=== PATIENT | female | born 1945 | race Caucasian/White ===

== ENCOUNTER 2024-11-04 11:17 | Inpatient (IN) | payer MEDICARE ==
[~2024-11-04] VITALS: Ht 152.4 cm; Wt 56.2 kg
[2024-11-04] MEDS ORDERED: AMIODARONE HCL200 MG PO (13:15)
[2024-11-04] MEDS ORDERED: ELIQUIS2.5 MG PO (13:15)
[2024-11-04] MEDS ORDERED: ASPIRIN81 MG PO (13:16)
[2024-11-04] MEDS ORDERED: CARBIDOPA-LEVO1 EAC1 PO (13:17)
[2024-11-04] MEDS ORDERED: DULCOLAX STOOL100 M1 PO (13:17)
[2024-11-04] MEDS ORDERED: FUROSEMIDE80 MG PO (13:18)
[2024-11-04] MEDS ORDERED: HYDRALAZINE HCL25 MG PO (13:18)
[2024-11-04] MEDS ORDERED: HYDROXYZINE HCL25 MG PO (13:19)
[2024-11-04] MEDS ORDERED: HUMALOG100 UNIT/1 SUB-Q (13:20)
[2024-11-04] MEDS ORDERED: LANTUS100 UNITS/ SUB-Q (13:20)
[2024-11-04] MEDS ORDERED: LEVOTHYROXINE88 MC1 PO (13:21)
[2024-11-04] MEDS ORDERED: ISOSORBIDE MONO30 MG PO (13:21)
[2024-11-04] MEDS ORDERED: CLARITIN10 M2 PO (13:22)
[2024-11-04] MEDS ORDERED: METHOCARBAMOL500 MG PO (13:23)
[2024-11-04] MEDS ORDERED: PANTOPRAZOLE SO40 M2 PO (13:24)
[2024-11-04] MEDS ORDERED: METOPROLOL TART25 MG PO (13:24)
[2024-11-04] MEDS ORDERED: HYDROmorphone HCL 1 MG/ML SYR IV PRN (13:45)
[2024-11-04] MEDS ORDERED: SODIUM CHLORIDE 0.9% 1,000 ML IV PRN (13:45)
[2024-11-04 13:51] LABS: BASOPHILS 0.3 % (0.1-1.2); EOSINOPHILS 0 % (0.7-5.8); LYMPHOCYTES 4.2 % (19.3-51.7); MCH 27.9 PG (25.6-32.2); MCHC 32.4 g/dL (32.2-35.5); MCV 86.3 fL (79.4-94.8); MONOCYTES 8.5 % (4.7-12.5); NEUTROPHILS 86.2 % (34.0-71.1); RBC 4.01 M/uL (3.93-5.22)
[2024-11-04 14:01] LABS: ALT (SGPT) 5.0 U/L (14-59); AST (SGOT) 21.0 U/L (15-37); GLOMERULAR FILTRATION RATE,EST 13.0 mL/min (>60); PROTEIN, TOTAL 7.6 g/dL (6.4-8.2); UREA NITROGEN 67.0 mg/dL (7-18)
[2024-11-04 15:59] LABS: BLOOD/HGB, URINE TRACE-I (Negative); KETONE, URINE NEGATIVE (Negative); LEUK ESTERASE, URINE NEGATIVE (negative); NITRITE, URINE NEGATIVE (negative)
[2024-11-04 16:12] LABS: CRYSTALS, URINE NONE SEEN (0-1+); EPITHELIAL CELLS, URINE SQUAMOUS 1+ /lpf (0-1+)
[2024-11-04 16:13] LABS: BACTERIA, URINE RARE /hpf (negative); CASTS, URINE NONE SEEN \\lpf; REFLEX CULTURE, URINE No (No)
[2024-11-04] MEDS ORDERED: PIPERACILLIN/TAZOBACTAM 4.5 GM in SODIUM CHLORIDE 0.9% 100 ML IV ONE (16:45)
[2024-11-04 17:50] LABS: LACTIC ACID, BLOOD 1.4 mmol/L (0.4-2.0)
[2024-11-04] MEDS ORDERED: GLUCAGON,HUMAN RECOMBINANT 1 MG/ML VIAL SUB-Q PRN (18:15)
[2024-11-04] MEDS ORDERED: IBLOOD GLUCOSE TEST STRIP 1 EA TEST XX PRN (18:15)
[2024-11-04] MEDS ORDERED: DEXTROSE 5% 1,000 ML IV PRN (18:15)
[2024-11-04] MEDS ORDERED: DEXTROSE 50% 50 ML SYR IV PRN ×2 (18:15)
[2024-11-04] MEDS ORDERED: SODIUM CHLORIDE 0.9% 1,000 ML IV SCH (18:15)
[2024-11-04] MEDS ORDERED: Insulin Regular, Human 100 UNIT/ML ML SUB-Q SCH (20:00)
[2024-11-04] MEDS ORDERED: IBLOOD GLUCOSE TEST STRIP 1 EA TEST VI SCH (20:00)
[2024-11-04 20:42] VITALS: BP 141/46
--- NOTE | 2024-11-04 21:33 | NUR ---
PT TO FLOOR FROM ED VIA STRETCHER. ALERT AND ORIENTED. 4PA SLIDE TRANSFER TO BED. REPORT RECEIVED. ORDERS RECEIVED. ADMISSION ASSESSMENT COMPLETE. PT NPO. VERBALIZES UNDERSTANDING. IVF INFUSING PER ORDER. ORAL CARE SUPPLIES PROVIDED. BOWEL TONES HYPOACTIVE. ABD SOFT AND SLIGHTLY DISTENDED. WARM BLANKET PROVIDED. PT ORIENTED TO ROOM AND NURSE CALL LIGHT. PT DENIES QUESTIONS OR CONCERNS. CALL LIGHT IN REACH. BED ALARM FOR SAFETY.
--- NOTE | 2024-11-04 23:46 | NUR ---
BLOOD SUGAR CHECKED PER PT REQUEST. PT UP TO BSC WITH 2PA TO VOID. STAFF ASSIST WITH ANURAG CARE. BACK TO BED, CRISTOFER WELL. THREE ATTEMPTS MADE WITH SOAP SUDS ENEMA. PT UNABLE TO HOLD SOLUTION. MD UPDATED. NO FURTHER NEEDS AT THIS TIME. CALL LIGHT IN REACH.
[2024-11-05] VITALS (8 sets, daily range): BP systolic 126–161; BP diastolic 43–69
[2024-11-05] MEDS ORDERED: PIPERACILLIN/TAZOBACTAM 4.5 GM in DEXTROSE 5% 100 ML IV SCH
--- NOTE | 2024-11-05 01:48 | NUR ---
PT UP TO BSC TO VOID AN UNMEASURED AMOUNT AND HAV EXTRA SMALL FORMED BM. LARGE AMOUNT OF FLATUS NOTED. STAFF ASSIST WITH ANURAG CARE. BACK TO BED, CRISTOFER WELL. REPORTS 5/10 "CRAMPING" LOWER ABD PAIN AND NAUSEA. PRN FOR PAIN AND N/V ADMIN PER EMAR. BOWEL TONES HYPOACTIVE. ABD SOFT AND SLIGHTLY DISTENDED. VS AND I&O OBTAINED. BLOOD SUGAR OBTAINED. PT REFUSED THE SEVEN UNITS CALLED FOR ON THE SLIDIDNG SCALE AND WOULD ONLY ACCEPT THREE UNITS. EDUCATION PROVIDED. PT NOT RECEPTIVE. SCD'S PLACE. NO FURTHER NEEDS. CALL LIGHT IN REACH.
--- NOTE | 2024-11-05 03:46 | NUR ---
PT RESTING IN BED WITH EYES CLOSED. RESPIRATIONS EVEN. CALL LIGHT IN REACH.
[2024-11-05 05:15] LABS: BASOPHILS 0.4 % (0.1-1.2); EOSINOPHILS 0.5 % (0.7-5.8); LYMPHOCYTES 7.0 % (19.3-51.7); MCH 27.7 PG (25.6-32.2); MCHC 32.0 g/dL (32.2-35.5); MCV 86.5 fL (79.4-94.8); MONOCYTES 9.1 % (4.7-12.5); NEUTROPHILS 82.5 % (34.0-71.1); RBC 3.47 M/uL (3.93-5.22)
[2024-11-05 05:36] LABS: AST (SGOT) 24.0 U/L (15-37); GLOMERULAR FILTRATION RATE,EST 14.0 mL/min (>60); PHOSPHORUS, INORGANIC 4.2 mg/dL (2.5-4.9); PROTEIN, TOTAL 6.0 g/dL (6.4-8.2); UREA NITROGEN 61.0 mg/dL (7-18)
[2024-11-05 05:44] LABS: ALT (SGPT) 5.0 U/L (14-59)
--- NOTE | 2024-11-05 05:49 | NUR ---
LAB IN FOR MORNING DRAW. PT UP TO BSC TO VOID. DAILY WEIGHT OBTAINED. BACK TO BED, CRISTOFER WELL. ASSISTED TO REPOSITION. NO FURTHER NEEDS. CALL LIGHT IN REACH.
--- NOTE | 2024-11-05 07:00 | NUR ---
Pt report received from JEANNINE Mathews. Pt is resting supine in bed, eyes closed, breathing is regular, even, and non-labored. Side rails up x4, call light in reach. White board updated.
--- NOTE | 2024-11-05 07:22 | NUR ---
Notified by JEANNINE Mathews that she just finished medicating this pt with 0.5mg dilaudid and 4mg zofran.
--- NOTE | 2024-11-05 07:40 | NUR ---
PATIENT LAYING IN BED. BG WAS 293. PATIENTS CALL LIGHT IS WITHIN REACH AND NO FURTHER NEEDS AT THIS TIME.
--- NOTE | 2024-11-05 08:45 | NUR ---
PATIENT LAYING IN BED. ORAL CARE AND BED BATH WERE DONE. PATIENTS GOWN WAS CHANGED. PATIENTS CALL LIGHT IS WITHIN REACH AND NO FURTHER NEEDS AT THIS TIME.
[2024-11-05] MEDS ORDERED: POTASSIUM CHLORIDE 40 MEQ,LIDOCAINE HCL 1% 40 MG in DEXTROSE 5% 250 ML IV ONE (09:00)
[2024-11-05] MEDS ORDERED: HYDROmorphone HCL 1 MG/ML SYR IV PRN (11:00)
[2024-11-05] MEDS ORDERED: PROCHLORPERAZINE EDISYLATE 10 MG/2 ML VIAL IV PRN (11:00)
[2024-11-05] MEDS ORDERED: PHARMACY RENAL DOSE ADJUSTMENT 1 DOSE MISC PO SCH (12:00)
[2024-11-05] MEDS ORDERED: VOLTAREN ARTHRI20 GM TOP (13:47)
[2024-11-05] MEDS ORDERED: ELDERBERRY IMM1 EACH PO (13:48)
[2024-11-05] MEDS ORDERED: LASIX80 MG PO (13:50)
[2024-11-05] MEDS ORDERED: MULTIVITAMIN W1 EAC2 PO (13:56)
--- NOTE | 2024-11-05 13:56 | NUR ---
PATIENT IS LAYING IN BED. PATIENTS VITAL SIGNS AND I&OS WERE DONE. CALL LIGHT IS WITHIN REACH AND NO FURTHER NEEDS AT THIS TIME.
[2024-11-05] MEDS ORDERED: NITROSTAT0.4 MG SL (13:57)
[2024-11-05] MEDS ORDERED: ONDANSETRON ODT8 MG PO (13:58)
--- NOTE | 2024-11-05 14:00 | NUR ---
RECEIVED A VERBAL ORDER FROM DR. DEL REAL TO ADMINISTER 30CC PO MINERAL OIL TO THIS PT BECAUSE HE COULDN'T FIND THE ORDER IN [employer] TO ENTER IT HIMSELF. PC TO PHARMACY AND WAS ADVISED THAT THEY DO NOT CARRY ANY ORAL MINERAL OIL BUT SUGGESTED I REACH OUT OF [facility]. I CALLED [facility] AND THEY BROUGHT OVER TWO PO MINERAL OIL CUPS.
[2024-11-05] MEDS ORDERED: ROSUVASTATIN CA10 MG PO (14:01)
[2024-11-05] MEDS ORDERED: PAPAYA ENZYME1 EACH PO (14:01)
[2024-11-05] MEDS ORDERED: SIMETHICONE80 MG PO (14:02)
[2024-11-05] MEDS ORDERED: TYLENOL EXTRA500 MG PO (14:07)
[2024-11-05] MEDS ORDERED: VITAMIN D350 MC3 PO (14:08)
[2024-11-05] MEDS ORDERED: LIDOCAINE1 EACH TD (14:12)
[2024-11-05] MEDS ORDERED: GLYCERIN 2 GM SUPP PR PRN (14:15)
[2024-11-05] MEDS ORDERED: SENNOSIDES/DOCUSATE 1 EA TAB PO ONE (14:15)
--- NOTE | 2024-11-05 15:04 | NUR ---
PC TO PT'S SON, ANDREA SANCHEZ, TO PROVIDE HIM WITH AN UPDATE AT HIS REQUEST.
--- NOTE | 2024-11-05 15:08 | NUR ---
MED REC COMPLETE
--- NOTE | 2024-11-05 15:09 | NUR ---
MED REC COMPLETE
--- NOTE | 2024-11-05 17:13 | NUR ---
PATIENT RESTING IN BED. VITAL SIGNS AND I&OS WERE DONE. PATIENTS CALL LIGHT IS WITHIN REACH AND NO FURTHER NEEDS AT THIS TIME.
--- NOTE | 2024-11-05 18:46 | NUR ---
PATIENT UP TO BEDSIDE COMODE VIA 2 PERSON ASSIST. PATIENT TOLERATED WELL. PATIENT BACK TO BED VIA 1 PERSON ASSIST. PATIENT TOLERATED WELL. PATIENT REPORTING 6/10 ABD PAIN AND REQUESTING PAIN MEDICATION. PATIENT REQUESTING NAUSEA MEDICATION WITH PAIN MEDICATION DUE TO "THE PAIN MEDICATION USUALLY MAKE ME SICK. PRN DOSE OF PAIN MEDICATION AND ZOFRAN ADMINISTERED. PATIENT WITHOUT FURTHER NEEDS AT THIS TIME. CALL LIGHT AND PERSONAL BELONGNIGS ARE WITHIN REACH. PATIENT ALSO WITH SMALL LIQUID/MUCOUS BM.
--- NOTE | 2024-11-05 19:30 | NUR ---
REPORT RECEIVED FROM JEANNINE VILA. pt RESTING IN BED WITH EYES CLOSED, DROWSY. IV ANTIBIOTIC INFUSING WNL, IV SITE ASSESSED. pt DENIES PAIN, DENIES NEEDS. CALL LIGHT IN REACH.
--- NOTE | 2024-11-05 20:45 | NUR ---
pt SLEEPING, DROWSY. AWAKENS TO VOICE. ALERT AND ORIENTED TO ALL EXCEPT TIME OF DAY. BOWEL TONES HYPOACTIVE, ABD TENDER. IV SITE FLUSHED WNL, BLOOD RETURN NOTED. IVF INFUSING ORDERED. 2PA SBA WITH FOUR WHEEL WALKER TO RESTROOM, ENCOURAGED AMBULATION. GAIT SHUFFLING, STEADY. TUBE MOUNTERLianet BANKS REMAINS IN RESTROOM WITH pt.
--- NOTE | 2024-11-05 21:04 | NUR ---
pt BACK TO BED WITH FOUR WHEEL WALKER, 1PA AFTER SMALL SEDIMENT BM WITH MUCOUS IN TOILET, DROPS OF URINE ONLY. TOPOGRAPHICAL SURVEYOR IN ROOM TO BLADDER SCAN. pt WEAK, REFUSES TO WALK ADDITIONALLY IN HALLWAY. BOOSTED IN BED, 2PA. CALL LIGHT IN REACH.
--- NOTE | 2024-11-05 21:17 | NUR ---
BLADDER SCAN FOR 188 MLS. PHONE CALL TO MD, NOTIFIED OF URINE OUTPUT THROUGHOUT DAY, NO BM, DROWSINESS. MD TO UPDATE IVF RATE.
--- NOTE | 2024-11-05 23:12 | NUR ---
CHECKED ON Pt. RESTING IN BED WITH EYES CLOSED, BREATHING UNLABORED. IVF INFUSING WNL PER ORDERS. NO DISTRESS NOTED.
[2024-11-06] VITALS (9 sets, daily range): BP systolic 129–184; BP diastolic 51–71
--- NOTE | 2024-11-06 00:52 | NUR ---
CALL LIGHT ANSWERED. pt COMPLAINS OF 6/10 ABDOMINAL PAIN AND NAUSEA. PRN MEDICATIONS ADMINISTERED. pt RESTING IN BED, BREATHING UNLABORED. NEW BAG IVF INFUSING AND IV ANTIBIOTIC ORDERED. CALL LIGHT IN REACH.
--- NOTE | 2024-11-06 02:44 | NUR ---
pt SLEEPING, AWAKENS TO VOICE, CBG 200. SS INSULIN ADMINISTERED. ASSESSMENT COMPLETE. BOWEL TONES HYPOACTIVE, FLATUS PRESENT, ABD SOFT, NONTENDER WITH PALPATION. IVF INFUSING WNL. CALL LIGHT IN REACH.
[2024-11-06 06:09] LABS: BASOPHILS 0.5 % (0.1-1.2); EOSINOPHILS 2.3 % (0.7-5.8); LYMPHOCYTES 9.7 % (19.3-51.7); MCH 28.2 PG (25.6-32.2); MCHC 32.4 g/dL (32.2-35.5); MCV 87.0 fL (79.4-94.8); MONOCYTES 11.4 % (4.7-12.5); NEUTROPHILS 75.6 % (34.0-71.1); RBC 3.55 M/uL (3.93-5.22)
--- NOTE | 2024-11-06 06:17 | NUR ---
CHECKED ON pt. RESTING IN BED WITH EYES CLOSED. BREATHING EQUAL AND UNLABORED. NO DISTRESS NOTED.
[2024-11-06 06:35] LABS: ALT (SGPT) 6.0 U/L (14-59); AST (SGOT) 34.0 U/L (15-37); GLOMERULAR FILTRATION RATE,EST 15.0 mL/min (>60); PROTEIN, TOTAL 6.1 g/dL (6.4-8.2); UREA NITROGEN 58.0 mg/dL (7-18)
--- NOTE | 2024-11-06 07:23 | NUR ---
Pt report received from JEANNINE Zurita.
[2024-11-06] MEDS ORDERED: POTASSIUM CHLORIDE 40 MEQ,LIDOCAINE HCL 1% 40 MG in DEXTROSE 5% 250 ML IV ONE (08:00)
--- NOTE | 2024-11-06 08:15 | NUR ---
In with pt for assessment at this time. Pt c/o hx of ulcers on heels and feels like they need triple abx ointment and bandaids. Skin assessment done at this time. Noted deep dark purple discoloration to bilateral heels, non-blanching. game manager Syeda Dominguez at the nurse's station and was notified of this finding. Advised by Syeda to off load heels and apply allyvn to both sites. This was done after photos obtained and placed in chart. Towel rolls provided for both heels as pt refused heel protectors. Pt reports pain in her abdomen, for which I administered 0.5mg dilaudid per emar and 4mg zofran as she states she gets nauseated every time she gets pain medications. KCL hung and started per emar as well. Bedside table, personal belongings, and call light in reach.
--- NOTE | 2024-11-06 08:27 | NUR ---
PATIENT CALLED TO USED RESTROOM, THIS ROTARY OPERATOR IN TO ASSIST. PATIENT COMPLAINING OF HEEL PAIN AND STATES "I USE TO HAVE ULCERS ON MY HEELS AND NOW THEY ARE HURTING. THEY NEED TO BE CHECKED." JEANNINE VILA NOW IN ROOM AND CHECKED HEELS. PATIENT ALREADY HAD PILLOW UNDER LEGS ELEVATING THEM, RN SUGGESTED HEEL PROTECTORS AND PATIENT SAID "IF THERE WHAT I AM THINKING ABOUT, I DONT WANT THOSE. I CAN'T MOVE IN THEM" PATIENT UP TO BATHROOM THEN TO CHAIR, 1PA FWW. PILLOW PLACED UNDER LEGS AND TOWELS ROLLED UP AND PLACED UNDER ANKLES SO HEELS TO RELEIVE PRESSURE ON HEELS. CALL LIGHT IN REACH. NO FURTHER NEEDS AT THIS TIME.
--- NOTE | 2024-11-06 10:05 | NUR ---
Received a phone call from Dr. Meneses to ask for an update on his patient. Advised him that she has not had any bowel movements so far and that we do have an additional cup of mineral oil for her if he needs it to be given. Verbal order obtained from Dr. Meneses to administer the second cup of mineral oil by mouth now, one time (30ml).
--- NOTE | 2024-11-06 10:37 | NUR ---
UR CLINICAL REVIEW: 2 MN FOR [employer] [place] MEETS INPATIENT FOR STERCORAL COLITIS WITH NEED FOR IV ABX, SURGICAL CONSULT AND BOWEL CARE. MEDICARE INPT 11/04/24 @ 1818 ORDER MATCHES REG NO AUTH REQUIRED PER MEDICARE GUIDELINES DISCHARGE TO HOME WHEN STABLE
--- NOTE | 2024-11-06 12:06 | NUR ---
In with pt to assist her with repositioning, MARY Stewart in to assist. Pt states she has been in this leaned over position in the chair since we initially got her up to the chair. I reminded the pt that this is untrue, that she was sitting up in the center of the chair every time I have entered the room since she was up to the chair shortly after 0800 hours. Pt states, "oh", and proceeded to allow us to help center her in the chair. A pillow was placed underneath her right side to help keep her upright. Pt then states she wants to think about getting back in to bed. Encouraged pt to stay in the chair for a while longer and that we will be back in a while to reassess. Call light in reach.
--- NOTE | 2024-11-06 13:45 | NUR ---
Notified by MARY Marcus that she took this pt's VS and obtained BP readings in the 180s systolic on both arms. The pt is supine in bed. This RN in to assess pt. Pt is resting supine in bed, eyes closed, breathing is regular, even, and non-labored. She reports belly pain and rates it a 5 out of 10 currently. She states she has hypertension normally and take BP meds at home. We do not have BP meds on her Emar currently. I will advised Dr. Browne.
--- NOTE | 2024-11-06 14:22 | NUR ---
PATIENT ALERT AND ORIENTED IN BED. LIVES AT [facility]. HAS A WALKER AND A SHOWER CHAIR. FAMILY PROVIDES TRANSPORTATION FOR PATIENT. HER PCP IS IN [place]. PATIENT HAS NO FINANCIAL CONCERNS AT THIS TIME. PATIENT HAS NO KNOWN CM NEEDS. PLANS TO RETURN TO [facility] WHEN MEDICALLY READY.
--- NOTE | 2024-11-06 14:27 | NUR ---
Dr. Browne notified of pt's elevated SBP readings.
--- NOTE | 2024-11-06 14:42 | NUR ---
PT NOT AVAILABLE FOR VISIT. PROVIDED PRAYER.
[2024-11-06] MEDS ORDERED: GLYCERIN 1 GM SUPP PR PRN (15:00)
[2024-11-06] MEDS ORDERED: DEXTROSE 5% - LACTATED RINGERS 1,000 ML IV SCH (15:45)
[2024-11-06] MEDS ORDERED: SENNOSIDES 1 TAB PO SCH (16:45)
--- NOTE | 2024-11-06 17:30 | NUR ---
In with pt to prep for soap suds enema. Pt is resting supine in bed, states she would like to attempt to use the toilet before receiving the enema. 1PA with FWW to toilet (MARY Arriaga). Pt assisted back to bed and lay on her left side in bed with knees bent. Pt made efforts to retain the enema fluid as long as possible (750ml in but most of it flowed right back out) and then was assisted up to the BSC. Pt allowed to sit on the commode with the call light in reach until she felt she was finished. Pt understands to use the call light when she is ready to get up.
--- NOTE | 2024-11-06 18:24 | NUR ---
PC to pt's son, Clinton, to provide him with an update as he called and left a message earlier this afternoon requesting one.
--- NOTE | 2024-11-06 18:54 | NUR ---
Notified by JEANNINE Tan and JEANNINE Baptiste that they administered PO Senokot per emar, and assisted the pt with cleaning up after finishing on the commode, and assisted her back into bed. They advised that there was no stool in the commode, post enema. Will advise film processing shift supervisor that she needs to have one more soap suds enema per Dr. Meneses's orders.
--- NOTE | 2024-11-06 19:10 | NUR ---
REPORT RECEIVED FROM CADENCE PAEZ. pt RESTING IN THE BED. BOARD UPDATED. pt DENIES ANY OTHER NEEDS THIS TIME. CALL LIGHT WITHIN REACH.
--- NOTE | 2024-11-06 20:45 | NUR ---
IN RM TO DO ASSESSMENT. pt VITAL SIGNS ARE DONE. BG CHECKED WITH A RESULTS OF 244. SS INSULIN ADMINISTERED. pt SBA TO THE BR WITH 4WW. IV ASSESSED, WNL. pt BACK TO BED. pt REPOSITIONED IN THE BED WITH TOWELS UNDER HEALS TO ELEVATE THEM. pt DENIES ANY OTHER NEEDS AT THIS TIME. CALL LIGHT WITHIN REACH.
--- NOTE | 2024-11-06 21:30 | NUR ---
pt BP RECHECKED WITH A RESULTS OF 162/83. PRN HYDRALAZINE ADMINISTERED PER ORDER. pt DENIES ANY OTHER NEEDS AT THIS TIME. CALL LIGHT WITHIN REACH.
--- NOTE | 2024-11-06 22:30 | NUR ---
IN TO GIVE pt HER SECOND SOAP SUDS ENEMA PER MD ORDER. SCHEDULED MEDS ADMINISTERED. pt STARTED IN THE BR BUT IT WAS UNABLE TO TAKE THE WHOLE ENEMA. pt MOVED TO BED AND THE REST OF THE ENEMA WAS GIVEN BRIEF WAS PUT ON. pt EDUCATED TO HOLD ONTO THE FLUID LONG SHE CAN. pt DENIES ANY OTHER NEEDS AT THIS TIME. CALL LIGHT WITHIN REACH.
[2024-11-07] VITALS (13 sets, daily range): BP systolic 123–179; BP diastolic 46–63
--- NOTE | 2024-11-07 | NUR ---
pt RESTING IN THE WITH EYES CLOSED. RR EVEN AND UNLABORED. CALL LIGHT WITHIN REACH.
--- NOTE | 2024-11-07 01:00 | NUR ---
CHECKED PATIENT. PRIMARY RN CAME IN TO HELP. PATIENT INSISTED TO GET UP TO THE TOILET. PATIENT NOTICED VERY SLOW TO MOVE GETTING UP AND UNABLE TO MAKE A STEP. BEDSIDE COMMODE OFFERED. PATIENT SAT FOR APPROXIMATELY 10 TO 15 MINUTES AND FINALLY CALLED. NO BM NOT EVEN SMEAR. ANURAG CARE ASSISTED. FRESH ATTENDS ON. PATIENT IS BACK IN BED. CALL LIGHT AND SIDE TABLE WITHIN REACH.
--- NOTE | 2024-11-07 01:34 | NUR ---
BG CHECKED WITH A RESULTS OF 269. SS INSULIN ADMINISTERED. pt BACK TO BED AFTER ATTEMPTING TO USE THE BSC WITH NO SUCCESS. IV ABX INFUSING PER ORDER. NEW BAG OF IVF INFUSING PER ORDER. pt DENIES ANY OTHER NEEDS AT THIS TIME. CALL LIGHT WITHIN REACH.
--- NOTE | 2024-11-07 03:04 | NUR ---
pt RESTING IN THE BED WITH EYES CLOSED. RR EVEN AND UNLABORED. CALL LIGHT WITHIN REACH.
--- NOTE | 2024-11-07 04:11 | NUR ---
pt CALLED TO USE THE BR. pt 1PA WITH 4WW. pt BACK TO BED. pt DENIES ANY NEEDS AT THIS TIME. CALL LIGHT WITHIN REACH.
--- NOTE | 2024-11-07 04:54 | NUR ---
pt RESTING IN THE BED. IV ABX FINISHED INFUSING. NO OTHER NEEDS AT THIS TIME. CALL LIGHT WITHIN REACH.
--- NOTE | 2024-11-07 05:10 | NUR ---
IN RM TO DO VITAL SIGNS. pt C/O 06/24 PAIN. PRN PAIN MEDS ADMINISTERED. PRN ANTINAUSEA MEDS ADMINISTERED. pt NPO AT THIS TIME. pt DENIES ANY OTHER NEEDS AT THIS TIME. CALL LIGHT WITHIN REACH.
[2024-11-07 05:31] LABS: BASOPHILS 0.6 % (0.1-1.2); EOSINOPHILS 2.3 % (0.7-5.8); LYMPHOCYTES 9.6 % (19.3-51.7); MCH 28.1 PG (25.6-32.2); MCHC 31.8 g/dL (32.2-35.5); MCV 88.3 fL (79.4-94.8); MONOCYTES 10.7 % (4.7-12.5); NEUTROPHILS 76.0 % (34.0-71.1); RBC 3.24 M/uL (3.93-5.22)
[2024-11-07 05:33] LABS: ALT (SGPT) 11.0 U/L (14-59); AST (SGOT) 26.0 U/L (15-37); GLOMERULAR FILTRATION RATE,EST 18.0 mL/min (>60); PROTEIN, TOTAL 5.7 g/dL (6.4-8.2); UREA NITROGEN 46.0 mg/dL (7-18)
--- NOTE | 2024-11-07 07:45 | NUR ---
REPORT RECEIVED FROM JEANNINE ADHIKARI. THRESHING MACHINE OPERATOR REPORTS AM CARE DONE AND PT TO CHAIR.
--- NOTE | 2024-11-07 08:57 | NUR ---
NEW BAG OF IVF INFUSING.
[2024-11-07] MEDS ORDERED: GLYCERIN 1 GM SUPP PR SCH (09:00)
--- NOTE | 2024-11-07 09:51 | NUR ---
UP IN RECLINER. DENIES CM NEEDS. CONTINUES TO PLAN TO DC TO HOME WHEN MEDICALLY READY
--- NOTE | 2024-11-07 11:24 | NUR ---
PT RESTING IN BED. MEDS GIVEN ORDERED AND REQUESTED PER PT. CALL LIGHT WITHIN REACH.
--- NOTE | 2024-11-07 13:41 | NUR ---
PT RESTING IN BED WITH HEELS ELEVATED OFF OF BED. PT HAS NO REQUESTS AT THIS TIME. BARRETTS REMOVED FOR PROCEDURE. CALL LIGHT WITHIN REACH.
--- NOTE | 2024-11-07 14:59 | NUR ---
PT ASSISTED IN AMBULATING TO RESTROOM TO VOID WITH PT'S WALKER. PT TOLERATED WELL. NO REQUESTS AT THIS TIME. PT HAS HEELS ELEVATED OFF OF BED AND CALL LIGHT WITHIN REACH. ORAL CARE PROVIDED.
--- NOTE | 2024-11-07 15:51 | NUR ---
PT DOWN FOR HER PROCEDURE VIA STRETCHER. PT'S SON CALLED PT REQUESTED TO UPDATE.
--- NOTE | 2024-11-07 17:06 | NUR ---
11/07/24 1706 Elida Henning [facility] 273
--- NOTE | 2024-11-07 17:32 | NUR ---
pt to room per stretcher and pacu staff, report recieved. pt drowsy but easily aroused. pt has ngt placed in or and verified. pt's son and in room. pt has red area to top right lip. call light within reach.
[2024-11-07] MEDS ORDERED: POLYETHYLENE GLYCOL 3350 BOTTLE PO ONE (18:30)
--- NOTE | 2024-11-07 18:32 | NUR ---
PT REQUESTED MEDICATION FOR NAUSEA AND PAIN 10/25. MEDS GIVEN ORDERED. CALL LIGHT WITHIN REACH. HOB ELEVATED.
--- NOTE | 2024-11-07 19:10 | NUR ---
REPORT RECEIVED FROM LEONORA PAEZ. pt RESTING IN THE BED. NG TUBE IN PLACE. pt DENIES ANY OTHER NEEDS AT THIS TIME. CALL LIGHT WITHIN REACH.
--- NOTE | 2024-11-07 21:35 | NUR ---
ASSESSMENT AND VITAL SIGNS DONE. PRN BP MEDS ADMINISTERED. pt C/O 10/25 PAIN. PRN PAIN MEDS ADMINISTERED. PRN ANTINAUSEA MEDS ADMINISTERED. THIS RN WAITED UNTIL pt WAS NO LONGER NAUSIOUS AND STARTED TO ADMINISTER. pt MIRALAX VIA NG TUBE. THIS RN WAS ABLE TO ADMINISTER 900mL BEFORE pt WOKE UP AND HAD 200mL OF EMESIS. THIS RN GOT pt SETTLED IN TO THE BED WITH COLD RAG. pt STATES SHE IS FEELING A LITTLE BETTER. BOWEL TONES ARE ACTIVE. pt DID GET UP TO THE BSC VIA 1PA WITH THE FWW. pt DENIES ANY OTHER NEEDS AT THIS TIME. CALL LIGHT WITHIN REACH.
--- NOTE | 2024-11-07 22:16 | EKG ---
[facility] [address] [facility] [place], [place] [address] Signed Sinus rhythm with 1st degree AV block ST \T\ T wave abnormality, consider anterolateral ischemia Prolonged QT Abnormal ECG No previous ECGs available Confirmed by Meghann Francois MD () on 11/07/2024 10:16:07 PM Electronically Signed By: MEGHANN FRANCOIS MD 11/07/24 2216 PATIENT NAME: SANCHEZSEN Electrocardiogram DATE OF : 41 PHYSICIAN: MEGHANN FRANCOIS MD REPORT #: [id number] REPORT IS CONFIDENTIAL AND NOT TO BE RELEASED WITHOUT AUTHORIZATION
--- NOTE | 2024-11-07 23:10 | NUR ---
IN RM TO CHECK ON pt SHE STATES HER NAUSEA IS GETTING BETTER BUT SHE IS STILL NAUSIOUS. PRN ANTINAUSEA MEDS ADMINISTERED. pt DENIES ANY OTHER NEEDS AT THIS TIME. CALL LIGHT WITHIN REACH.
[2024-11-08] VITALS (12 sets, daily range): BP systolic 136–184; BP diastolic 54–71
--- NOTE | 2024-11-08 00:27 | NUR ---
IN RM TO ADMINISTER pt IV ABX PER ORDER. 250mL OF MIRALAX VIA NG TUBE ADMINISTERED. pt RESTING IN THE BED WITH EYES CLOSED. NO OTHER NEEDS AT THIS TIME. CALL LIGHT WITHIN REACH.
--- NOTE | 2024-11-08 00:43 | NUR ---
pt CALL TO USE THE BSC. 1PA TO THE BSC WITH 4WW. NG TUBE ATTACHED TO GOWN. CALL LIGHT NEXT TO PATIENT.
--- NOTE | 2024-11-08 01:05 | NUR ---
ASSISTED PATIENT FROM BEDSIDE COMMODE BACK TO BED. ANURAG CARE ASSISTED. NO FURTHER NEEDS AT THIS TIME.
--- NOTE | 2024-11-08 03:30 | NUR ---
pt CALLED AND C/0 NAUSEA. THIS RN ADMINISTERED PRN ANTINAUSEA MEDS. pt THEN CALLED TO USE THE BSC. pt 1PA TO THE BSC WITH 4WW. pt DENIES ANY OTHER NEEDS AT THIS TIME. CALL LIGHT WITHIN REACH. pt BACK TO BED. NG TUBE IN PLACE. BOWEL TONES ACTIVE.
[2024-11-08 06:25] LABS: BASOPHILS 0.2 % (0.1-1.2); EOSINOPHILS 0.5 % (0.7-5.8); LYMPHOCYTES 6.7 % (19.3-51.7); MCH 28.0 PG (25.6-32.2); MCHC 31.9 g/dL (32.2-35.5); MCV 87.6 fL (79.4-94.8); MONOCYTES 9.1 % (4.7-12.5); NEUTROPHILS 83.1 % (34.0-71.1); RBC 3.22 M/uL (3.93-5.22)
[2024-11-08 06:43] LABS: ALT (SGPT) 14.0 U/L (14-59); AST (SGOT) 22.0 U/L (15-37); GLOMERULAR FILTRATION RATE,EST 21.0 mL/min (>60); PROTEIN, TOTAL 5.8 g/dL (6.4-8.2); UREA NITROGEN 33.0 mg/dL (7-18)
--- NOTE | 2024-11-08 07:25 | NUR ---
REPORT RECEIVED FROM ONOFRE PAEZ. PT RESTING IN BED WITH CPOX, SCDs ON, AND NGT IN PLACE. STATES PAIN IS "BETTER NOW". NO REQUESTS AT THIS TIME. CALL LIGHT WITHIN REACH.
[2024-11-08] MEDS ORDERED: POTASSIUM CHLORIDE 40 MEQ,LIDOCAINE HCL 1% 40 MG in DEXTROSE 5% 250 ML IV ONE (08:00)
[2024-11-08] MEDS ORDERED: MAGNESIUM SULFATE 2 GM/50 ML BAG IV ONE (08:00)
--- NOTE | 2024-11-08 09:40 | NUR ---
PT NOT AVAILABLE FOR VISIT. PROVIDED PRAYER.
--- NOTE | 2024-11-08 10:14 | NUR ---
PT WAS UP TO RESTROOM TO HAVE ANOTHER BM THIS AM. PT TOLERATED WELL. PT RESTING IN BED WITH CPOX AND SCDs ON AND CALL LIGHT WITHIN REACH.
--- NOTE | 2024-11-08 10:26 | NUR ---
PATIENT HAS NO CM NEEDS. WILL CALL FRIEDA MENDEZ WHEN SHE IS CLOSER TO DC SO THEY MAY ASSESS HER PRIOR TO HER RETURN.
--- NOTE | 2024-11-08 11:28 | NUR ---
DID ORAL CARE AND WASHED PATIENT'S FACE THAN HELPED HER INTO THE BATHROOM. PATIENT IS NOW BACK IN BED CALL LIGHT IN REACH.
--- NOTE | 2024-11-08 11:29 | NUR ---
PT RESTING IN BED AFTER AMBULATING TO RESTROOM WITH VOICE ENGINEER ASSIST. PT CONTINUES TO HAVE BMs. NO REQUESTS AT THIS TIME. CALL LIGHT WITHIN REACH.
--- NOTE | 2024-11-08 12:49 | NUR ---
PT SITTING UP IN CHAIR WATCHING TV. WARM BLANKET PROVIDED REQUESTED. CALL LIGHT WITHIN REACH. NO OTHER REQUESTS AT THIS TIME.
--- NOTE | 2024-11-08 13:30 | NUR ---
NGT DC'D ORDERED. PT TOLERATED WELL. PT AMBULATED TO THE RESTROOM TO HAVE ANOTHER BM. PT TOLERATED WELL. NO REQUESTS AT THIS TIME.
--- NOTE | 2024-11-08 14:00 | NUR ---
DR FRANCOIS IN TO SEE PT AND DISCUSS POC. PT GIVEN CHICKEN BROTH AND ICE WATER FOR CLEAR DIET ORDER PT REQUESTED. PT SITTING UP IN BED WATCHING TV. CALL LIGHT WITHIN REACH.
--- NOTE | 2024-11-08 14:18 | NUR ---
PT CONTINUES TO HAVE LIQUID BROWN STOOLS.
--- NOTE | 2024-11-08 16:10 | NUR ---
PT RESTING IN BED WITH EYES CLOSED AND RESPIRATIONS EVEN AND UNLABORED. CALL LIGHT WITHIN REACH.
--- NOTE | 2024-11-08 16:34 | CONS ---
[facility] [address], [place] [address] Signed DATE OF CONSULTATION: 11/05/2024 REQUESTING PHYSICIAN: Dr. Browne. 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 HISTORY OF PRESENT ILLNESS: This 79-year-old woman lives at [facility] in assisted living area locally. She presented to emergency room with complaints of abdominal pain, not well localized and diffuse throughout the abdomen. She had some vomiting that started few days earlier with quite a few episodes 5 to 6 in number. She was feeling weak and fatigued and difficulty with ambulation. Her last bowel movement was five days preceding her evaluation. She has had no blood per rectum or hematemesis. She had been taking Dulcolax, but nothing else in her facility. MEDICATIONS: Have included 1. Amiodarone. 2. Apixaban. 3. Aspirin. 4. Carbidopa levodopa. 5. Lasix. 6. Hydroxyzine. 7. Insulin. 8. Isosorbide. 9. Synthroid. 10. Loratadine. 11. Methocarbamol. 12. Metoprolol. LABORATORY STUDIES: Show an elevated white count of 17.1. Electrolytes abnormal for creatinine elevated at 3.51, which is apparently a chronic issue. A CT scan was performed showing a large volume of inspissated stool throughout the nondilated colon with mild adjacent colonic wall thickening with questionable inflammation consistent with possible stercoral colitis. There was no sign of actual colonic obstruction. Gallbladder was quite distended without adjacent inflammation. There was no sign of intrahepatic ductal dilatation. She was admitted to Dr. Browne, hospitalist and I certainly agree to consult on the patient and recommended that therapy be again from below, specifically enemas to free up Electronically Signed By: ZHOU DEL REAL MD 11/08/24 1634 PATIENT NAME: SEN SANCHEZ CONSULTATION DATE OF : 41 REPORT #: [id number] PHYSICIAN: ZHOU DEL REAL MD PCP: BELLE TOLEDO REPORT IS CONFIDENTIAL AND NOT TO BE RELEASED WITHOUT AUTHORIZATION [facility] [address], [place] [address] Signed bowel. I am advised by Dr. Browne and nurses that attempts at enemas at least today were with minimal production as there was no retention of the fluid and only a small amount of stool produced. Enemas were initiated yesterday and those results were of uncertain benefit but likely to have been ineffective as well. REVIEW OF SYSTEMS: She says she does not have too much pain at least at rest at this time. She denies any shortness of breath or chest pain. PHYSICAL EXAMINATION: GENERAL: A pleasant woman with a calm demeanor and not toxic in appearance. VITAL SIGNS: Temperature is 98.0, pulse 63, blood pressure 145/59. Trachea is midline. CHEST: Shows normal respiratory excursion. ABDOMEN: Not particularly distended. Gentle palpation does reveal tenderness in the left lower abdomen. EXTREMITIES: Show no clubbing, cyanosis, or edema. LABORATORY DATA: Lab studies today shows white count decreased to 13.2, hematocrit 30.0, platelets 196,000. Chem profile with creatinine down to 3.17, potassium is 3.4, bilirubin is 1.1. Notably, her urinalysis was notable for red cells of 4 to 6 per high-power field, white cells 2 to 3, squames 1+. Review of her CT scan does show considerable amount of stool burden within the colon extending proximally as well, but without colonic dilatation or signs of actual colonic obstruction. ASSESSMENT: The patient has significant constipation, almost certainly related to her carbidopa levodopa regimen, decreased activity level and elderly state. I discussed with the patient my recommendation for need to do a bedside distal fecal disimpaction and ultimately re-initiate enema therapy. She may require exam under anesthesia depending on what happens. I did recommend antibiotics be initiated at time of presentation and she has been on Zosyn (Pipracil), which was discontinued after one time dose, it was re-initiated however I see in the MAR. Avoidance of cathartic from above is most important as significant impaction of this level can be quite problematic with an osmotic or even a stimulant medication from above. A glycerin suppository may follow disimpaction prior to additional attempts at enema therapy. Electronically Signed By: ZHOU DEL REAL MD 11/08/24 1634 PATIENT NAME: SEN SANCHEZ CONSULTATION DATE OF : 41 REPORT #: [id number] PHYSICIAN: ZHOU DEL REAL MD PCP: BELLE TOLEDO REPORT IS CONFIDENTIAL AND NOT TO BE RELEASED WITHOUT AUTHORIZATION [facility] [address], [place] [address] Signed MD QING Connolly/MODL /[id number] cc: [facility] Copies: ~ Electronically Signed By: ZHOU DEL REAL MD 11/08/24 1634 PATIENT NAME: SEN SANCHEZ Mallory CONSULTATION DATE OF : 41 REPORT #: [id number] PHYSICIAN: ZHOU DEL REAL MD PCP: BELLE TOLEDO ANP REPORT IS CONFIDENTIAL AND NOT TO BE RELEASED WITHOUT AUTHORIZATION
--- NOTE | 2024-11-08 16:34 | OR ---
[facility] [address] [place], [place] [address] Signed DATE OF OPERATION: 11/07/2024 SURGEON: Zhou Del Real MD PREOPERATIVE DIAGNOSES: Recent admission with colon full of stool concerning for stercoral colitis, fecal impaction, well above rectosigmoid. POSTOPERATIVE DIAGNOSES: 1. Significant fecal impaction left colon and proximal. 2. Sigmoid diverticulosis extensive. PROCEDURES: 1. Colonoscopy with lavage and morcellation of stool for clearance of fecal impaction. 2. Upper endoscopy for physician required passage of nasogastric tube. ANESTHESIA: Intravenous sedation propofol infusion; Luz Maria Borges CRNA. INDICATION: This 79-year-old woman is a patient of Dr. Browne and was admitted with a considerable amount of left-sided abdominal pain, elevated white count, and no bowel movement for the preceding several days. A CT scan showed considerable amount of stool in the colon. Digital rectal examination shows no stool in the rectal vault. Given her elevated white count, tenderness and so forth concerns for stercoral colitis were made, notably, her lactic acid level was normal. She was treated with IV antibiotic and attempts at stool extraction from below including tap water enemas x4, which have been unsuccessful, mineral oil from above and stimulants such as glycerin suppository and Senokot. She seems to have no progress in this regard, but her white count is now in the normal range. I have recommended a colonoscopy from below with irrigation and hopes of clearing the colon. The risk of bleeding, infection, and perforation were reviewed with her, she understands, and wished to proceed. FINDINGS: Stool was above the rectosigmoid, indeed at 40 cm above. There were diverticuli, which were extensive in the sigmoid and left colon. Despite some stool being broken up, morcellate, and irrigated, so forth clearance of the colon was not forthcoming and on that basis, a plan for antegrade controlled infusion of bowel prep solution will be undertaken. A nasogastric tube was required on that basis as the patient is unlikely compliant with such regimen in any meaningful way. Electronically Signed By: ZHOU DEL REAL MD 11/08/24 1634 PATIENT NAME: SEN SANCHEZ OPERATIVE REPORT DATE OF : 41 REPORT #: [id number] PHYSICIAN: ZHOU DEL REAL MD PCP: BELLE TOLEDO ANP REPORT IS CONFIDENTIAL AND NOT TO BE RELEASED WITHOUT AUTHORIZATION [facility] [address] [place], [place] [address] Signed PROCEDURE IN DETAIL: The patient was brought to the endoscopy suite and placed in lateral decubitus position. Given intravenous sedation to the point of slurred speech and nystagmus with full cardiopulmonary monitoring. Digital rectal examination was normal and free of any stool. Olympus video colonoscope was passed in the rectum and manipulated beyond the rectosigmoid into the sigmoid where diverticuli were noted. Scope was passed beyond this and at approximately 40 cm, a fair amount of stool was noted. The mucosa of the colon did not show sign of ischemia. There were diverticuli, which were large and small mouthed and extensive. Irrigation was undertaken and morcellation attempts with the snare and so forth were undertaken, but only a small amount of relief of the problem was noted. Various maneuvers were made to pass around the stool, which was not forthcoming and despite a considerable amount of time and effort, significant fecal impaction remains albeit without currently visualized ischemic change of colon. On that basis, a nasogastric tube was deemed advisable as she is not likely compliant with a metered dose of bowel prep solution from above. Attempts by boat wrapper and myself to pass a nasogastric tube initially were unsuccessful. Ultimately, a flexible upper endoscope was passed in the hypopharynx with guidance, the scope passed in the esophagus, ultimately guided to the stomach itself. The gastric mucosa appeared normal. There was no injury to the esophagus or hypopharynx or anything of that sort. The scope was removed and the patient was taken to the recovery room in good condition. CLINIC DIAGNOSES: 1. Remains with significant fecal impaction in left colon and proximal. 2. Nasogastric tube difficult to place and required physician intervention now available for metered dosage of MiraLAX and bowel prep from above with less hazard to colon. PLAN: Initiate MiraLAX per nasogastric tube on a scheduled basis. MD QING Connolly/MODL /[id number] Electronically Signed By: ZHOU DELR EAL MD 11/08/24 1634 PATIENT NAME: SEN SANCHEZ OPERATIVE REPORT DATE OF : 41 REPORT #: [id number] PHYSICIAN: ZHOU DEL REAL MD PCP: BELLE TOLEDO REPORT IS CONFIDENTIAL AND NOT TO BE RELEASED WITHOUT AUTHORIZATION [address] [address] Signed cc: HUSSEIN Carrera Dr. Copies: ~ Electronically Signed By: ZHOU DEL REAL MD 11/08/24 1634 PATIENT NAME: SEN SANCHEZ OPERATIVE REPORT DATE OF : 41 REPORT #: [id number] PHYSICIAN: ZHOU DEL REAL MD PCP: BELLE TOLEDO REPORT IS CONFIDENTIAL AND NOT TO BE RELEASED WITHOUT AUTHORIZATION
[2024-11-08] MEDS ORDERED: MAGNESIUM CITRATE 300 ML BTL PO ONE (16:45)
--- NOTE | 2024-11-08 17:50 | NUR ---
PT RESTING IN BED WATCHING TV AND EATING HER CL LIQUID DIET. CALL LIGHT WITHIN REACH.
--- NOTE | 2024-11-08 18:02 | NUR ---
MAG CITRATE GIVEN ORDERED. CALL LIGHT WITHIN REACH.
--- NOTE | 2024-11-08 19:10 | NUR ---
REPORT RECEIVED FROM LEONORA PAEZ. pt UP TO THE BSC WITH [employer] ARTIST'S. BOARD UPDATED. pt DENIES ANY OTHER NEEDS AT THIS TIME. CALL LIGHT WITHIN REACH.
--- NOTE | 2024-11-08 19:23 | NUR ---
PATIENT CALLED TO USE THE RESTROOM. THIS TRAVEL MED SURG RN AND MARY SHERMAN ASSISTED PATIENT WITH FWW TO [facility]. GOWN AND BRIEF WAS CHANGED. PATIENT WAS PROVIDED WITH A WARM WASH CLOTH AND DECLINED TO BRUSH TEETH RIGHT NOW. PATIENT CALL LIGHT IS WITHIN REACH AND NO FURTHER NEEDS AT THIS TIME.
--- NOTE | 2024-11-08 19:28 | NUR ---
PATIENT HAS BEEN CALLING ALL DAY TO GET UP TO THE BEDSIDE COMMODE. SO SHE DIDN'T FEEL LIKE DOING A BEDBATH.
--- NOTE | 2024-11-08 19:30 | NUR ---
PATIENT DID DO HER AM CARE.
--- NOTE | 2024-11-08 20:30 | NUR ---
ASSESSMENT AND VITAL SIGNS DONE. BG CHECKED WITH A RESULTS OF 162. SS INSULIN ADMINISTERED. IV ASSESSED, WNL. PRN BP MEDS ADMINISTERED. WARM BLANKET PROVIDED. WARM COMPRESS PROVIDED. pt DENIES ANY OTHER NEEDS AT THIS TIME. CALL LIGHT WITHIN REACH. BOWEL TONES ACTIVE.
--- NOTE | 2024-11-08 21:59 | NUR ---
PATIENT CALLED TO USE THE RESTROOM. THIS REPAIRER WELDING SYSTEMS AND EQUIPMENT AND REPAIRER WELDING SYSTEMS AND EQUIPMENTLianet SHERMAN ASSISTED PATIENT WITH FWW TO [facility]. PATIENTS BRIEF WAS CHANGED AND ANURAG CARE WAS DONE. PATIENT IS LAYING IN BED. CALL LIGHT IS WITHIN REACH AND NO FURTHER NEEDS AT THIS TIME.
--- NOTE | 2024-11-08 23:32 | NUR ---
pt RESTING IN THE BED WITH EYES CLOSED. RR EVEN AND UNLABORED. CALL LIGHT WITHIN REACH.
[2024-11-09] VITALS (13 sets, daily range): BP systolic 135–176; BP diastolic 52–72
--- NOTE | 2024-11-09 01:36 | NUR ---
pt RESTING IN THE BED WITH EYES CLOSED. RR EVEN AND UNLABORED. NO OTHER NEEDS AT THIS TIME. CALL LIGHT WITHIN REACH.
--- NOTE | 2024-11-09 02:45 | NUR ---
pt BG CHECKED WITH A RESULTS OF 173. SS INSULIN ADMINISTERED. pt RESTING IN THE BED WITH EYES CLOSED. RR EVEN AND UNLABORED. CALL LIGHT WITHIN REACH.
--- NOTE | 2024-11-09 03:57 | NUR ---
pt RESTING IN THE BED WITH EYES CLOSED. RR EVEN AND UNLABORED. CALL LIGHT WITHIN REACH.
[2024-11-09 05:23] LABS: BASOPHILS 0.4 % (0.1-1.2); EOSINOPHILS 3.3 % (0.7-5.8); LYMPHOCYTES 14.3 % (19.3-51.7); MCH 27.8 PG (25.6-32.2); MCHC 31.9 g/dL (32.2-35.5); MCV 87.3 fL (79.4-94.8); MONOCYTES 9.4 % (4.7-12.5); NEUTROPHILS 72.0 % (34.0-71.1); RBC 2.91 M/uL (3.93-5.22)
[2024-11-09 05:40] LABS: ALT (SGPT) 10.0 U/L (14-59); AST (SGOT) 20.0 U/L (15-37); GLOMERULAR FILTRATION RATE,EST 23.0 mL/min (>60); PROTEIN, TOTAL 5.3 g/dL (6.4-8.2); UREA NITROGEN 27.0 mg/dL (7-18)
--- NOTE | 2024-11-09 06:27 | NUR ---
pt RESTING IN THE BED WITH EYES CLOSED. RR EVEN AND UNLABORED. VITAL SIGNS AND ASSESSMENT DONE. NO OTHER NEEDS AT THIS TIME. CALL LIGHT WITHIN REACH.
--- NOTE | 2024-11-09 07:06 | NUR ---
RECIEVED REPORT FROM JEANNINE ADHIKARI. PT IS RESTING IN BED WITH EYES CLOSED. RR EVEN AND UNLABORED. CALL LIGHT AND PERSONAL BELONGINGS ARE WITHIN REACH.
--- NOTE | 2024-11-09 08:05 | NUR ---
PT RESTING IN BED WITH EYES CLOSED. RR EVEN AND UNLABORED. CALL LIGHT AND PERSONAL BELONGINGS ARE WITHIN REACH.
--- NOTE | 2024-11-09 08:10 | NUR ---
PATIENT REFUSING INSULIN. PATIENT EDUCATED ON IMPORTANCE OF INSULIN FOR PATIENT'S CURRENT CBG LEVEL OF 191. PATIENT CONTINUES TO REFUSE INSULIN. ASSOCIATE PROFESSOR OF LITERACY () NOTIFIED AND STATES SHE WILL TALK WITH DR DUFFY AT MORNING ROUNDS.
[2024-11-09] MEDS ORDERED: DEXTROSE 5% - LACTATED RINGERS 1,000 ML IV SCH (09:15)
--- NOTE | 2024-11-09 10:00 | NUR ---
PATIENT MEDICATED PER EMAR. PATIENT ASSESSMENT COMPLETED. PT AND MARY MERINO IN ROOM WORKING WITH PATIENT. PATIENT WITHOUT FURTHER NEEDS FROM THIS RN. IV FLUSED WITH 10ML OF NS, DRESSING IS INTACT.
[2024-11-09] MEDS ORDERED: Insulin Regular, Human 100 UNIT/ML ML ONE (10:05)
--- NOTE | 2024-11-09 10:26 | NUR ---
PATIENT IN BED AT THIS TIME. MEDICAL DOCTOR MD/MEDICAL DIRECTOR CHARTED VITALS AND I&O'S. CALL LIGHT WITHIN REACH, NO FURTHER NEEDS.
--- NOTE | 2024-11-09 11:01 | NUR ---
OT IN ROOM WORKING WITH PATIENT AT THIS TIME.
--- NOTE | 2024-11-09 11:34 | NUR ---
PT NOT AVAILABLE FOR VISIT. PROVIDED PRAYER.
--- NOTE | 2024-11-09 12:27 | NUR ---
PATIENT RESTING IN HER CHAIR WITH HER EYES CLOSED. PATIENT EASILY AROUSABLE WHEN RN'S WALKED IN ROOM. PATIENT MEDICATED PER EMAR. PATIENT WITHOUT FURTHER NEEDS AT THIS TIME. CALL LIGHT AND PERSONAL BELONGINGS ARE WITHIN REACH. MARY CRAFT IN ROOM FOR VITAL SIGNS.
--- NOTE | 2024-11-09 12:37 | NUR ---
PATIENT WAS IN HER CHAIR AT THIS TIME, LIQUID FERTILIZER SERVICER CHARTED VITALS AND I&O'S, GOT PATIENT 2 WARM BLANKETS, CALL LIGHT WITH IN REACH AND NOTHING ELSE NEEDED AT THIS TIME.
--- NOTE | 2024-11-09 12:49 | NUR ---
HUMAN RESOURCES TECHNICIAN LET RN KNOW PATIENT BLOOD PRESSURE WAS 176/65 WITH A MAP OF 93. THIS RN AND JEANNINE TILLMAN IN ROOM TO ASSESS PATIENT AND ADMINISTER PRN DOSE OF HYDRALAZINE PER ORDER FOR HYPERTENTION. BLOOD PRESSURE TAKEN BEFORE ADMINISTERED AND WAS NOTED TO BE 164/61 WITH A MAP OF 88. MEDICATION ADMINISTERED. IV FLUSHED WITH 10ML OF NS, DRESSING IS INTACT. IV FLUIDS AND ABX RESUMED. PATIENT WITHOUT FURTHER NEEDS AT THIS TIME. CALL LIGHT AND PERSONAL BELONGINGS ARE WITHIN REACH.
--- NOTE | 2024-11-09 13:32 | NUR ---
PATIENT UP TO BEDSIDE COMMODE. AND TAKEN TO PROCEDURE.
--- NOTE | 2024-11-09 14:06 | NUR ---
PATIENT TO GO TO [facility] TOMORROW.
[2024-11-09] MEDS ORDERED: LIDOCAINE HCL 2% 5 ML SDV ONE (14:17)
--- NOTE | 2024-11-09 15:14 | NUR ---
11/09/24 1514 Pura Cunningham 1508-PATIENT ARRIVED TO PACU ON 6L MASK RR EVEN NONAROUSABLE SR HR 60'S. IVF INFUSING. ABDOMEN SOFT. 1512-GLUCOSE CHECKED 218
--- NOTE | 2024-11-09 16:15 | NUR ---
PATIENT BACK FROM PROCEDURE. REPORT RECIEVED FROM YARD RIGGER. PATIENT TRANSFERED FROM STRETCHER TO BED. VITAL SIGNS TAKEN AND ARE STABLE. IV FLUIDS AND ABX RESUMED PER ORDER. SCD'S TURNED ON. WARM BLANKETS PROVIDED. PATIENT WITHOUT FURTHER NEEDS AT THIS TIME. CALL LIGHT AND PERSONAL BELONGINGS ARE WITHIN REACH.
--- NOTE | 2024-11-09 16:30 | NUR ---
IN ROOM TO CHECK PT BLOOD SUGAR. PT LAYING IN BED WITH HEAD ELEVATED. EYES CLOSED, RR EVEN AND UNLABORED. MARY MERINO, PROVIDED PT WITH FRESH WARM BLANKETS. CALL LIGHT WITHIN REACH, DENIES ANY OTHER NEEDS AT THIS TIME.
[2024-11-09] MEDS ORDERED: POLYETHYLENE GLYCOL 3350 1 PACKET PO SCH ×2 (17:17→17:18)
[2024-11-09] MEDS ORDERED: PSYLLIUM SEED 1 PKT PACKET PO SCH (17:23)
--- NOTE | 2024-11-09 18:02 | NUR ---
CALL TO MD TO VERIFY DIET ORDER FOR DINNER, PER MD STARTED ON 60GRAM CARB DIET, DC IVF, MIRALAX 1 SCOOP DAILY, METAMUCIL 1 SCOOP DAILY; ADJUSTED INSULIN TO ACHS AND CHANGE REGULAR INSULIN TO LISPRO FOR MEAL COVERAGE; ORDERS INPUT IN THE COMPUTER. PRIMARY RN NOTIFIED OF NEW ORDERS. DIETARY CALLED TO SEND UP DINNER TRAY FOR PATIENT.
--- NOTE | 2024-11-09 18:19 | NUR ---
PATIENT IS IN BED AT THIS TIME, MARY DAS AND Ivan CHARTED VITALS AND I&O'S, PATIENT IS VERY TIRED AND HAS NOT VOIDED SINCE SHE HAS BEEN BACK. CALL LIGHT WITH IN REACH AND NOTHING ELSE NEEDED AT THIS TIME.
--- NOTE | 2024-11-09 19:20 | NUR ---
REPORT RECIEVED FROM JEANNINE KLEIN. PATIENT RESTING WITH EYES CLOSED, REPSIRATIONS EVEN AND UNLABORED. NEW ALYVENS PLACED ON EACH HEEL. NO NEEDS IDENTIFIED, CALL LIGHT IN REACH.
[2024-11-09] MEDS ORDERED: IBLOOD GLUCOSE TEST STRIP 1 EA TEST VI SCH (21:00)
[2024-11-09] MEDS ORDERED: INSULIN LISPRO 100 UNIT/ML ML SUB-Q SCH (21:00)
--- NOTE | 2024-11-09 21:25 | NUR ---
TOOK OUT TRAH. REPOSITIONED PT, PT SLEEPING BUT HER HEAD WAS OFF THE PILLOW- I REPOSITIONED THE PT'S HEAD AND BED/PILLOW. CALL LIGHT ON PT'S LAP - CLEANED UP PT ROOM. PT SLEEPING WHILE VITALS WERE BEING TAKEN.
--- NOTE | 2024-11-09 21:50 | NUR ---
PT RESTING IN BED WITH EYES CLOSED, EASILY AROUSED. ASSESSMENT PERFORMED. MEDICATIONS GIVEN PER ORDER. PATIENT ABLE TO SWALLOW PILLS WITHOUT DIFFICULTY. WATER REFRESHED AND SF JELLO PROVIDED. NO OTHER NEEDS IDENTIFIED AT THIS TIME, CALL LIGHT IN REACH.
--- NOTE | 2024-11-09 22:28 | NUR ---
ROUNDED ON PATIENT, PATIENT ALERT AND WATCHING TV. RESPIRATIONS EVEN AND UNLABORED. NO NEEDS IDENTIFIED, CALL LIGHT IN REACH.
--- NOTE | 2024-11-10 00:20 | NUR ---
PATIENT RESTING WITH EYES CLOSED, RESPIRATIONS EVEN AND UNLABORED. EASILY AROUSED WITH VERBAL CUES. SCHEDULED MEDICATION GIVEN PER ORDER, UP TO BSC WITH X2 PERSON ASSIST. BACK TO BED, CPOX IN PLACE. PATIENT ON RA. PATIENT REQUESTED SNACK, NO OTHER NEEDS, CALL LIGHT IN REACH
[2024-11-10 01:36] VITALS: BP 140/45
[2024-11-10 02:02] VITALS: BP 140/45
--- NOTE | 2024-11-10 03:29 | NUR ---
ROUNDED ON PATIENT, RESPIRATIONS EVEN AND UNLABORED, PATIENT RESTING WITH EYES CLOSED. NO NEEDS IDENTIFIED, CALL LIGHT IN REACH.
--- NOTE | 2024-11-10 04:21 | NUR ---
IN ROOM IN RESPONSE TO ALARMING IV PUMP. IV MEDICATION COMPLETE. PATIENT RESTING WITH EYES CLOSED, CALL LIGHT IN REACH, RESPIRATIONS EVEN AND UNLABORED.
[2024-11-10 05:23] LABS: BASOPHILS 0.7 % (0.1-1.2); EOSINOPHILS 3.2 % (0.7-5.8); LYMPHOCYTES 15.1 % (19.3-51.7); MCH 27.7 PG (25.6-32.2); MCHC 31.8 g/dL (32.2-35.5); MCV 87.2 fL (79.4-94.8); MONOCYTES 11.9 % (4.7-12.5); NEUTROPHILS 68.4 % (34.0-71.1); RBC 3.28 M/uL (3.93-5.22)
[2024-11-10 05:40] LABS: ALT (SGPT) 9.0 U/L (14-59); AST (SGOT) 16.0 U/L (15-37); GLOMERULAR FILTRATION RATE,EST 22.0 mL/min (>60); PROTEIN, TOTAL 5.5 g/dL (6.4-8.2); UREA NITROGEN 27.0 mg/dL (7-18)
[2024-11-10 05:46] VITALS: BP 159/60
[2024-11-10 06:00] VITALS: BP 159/60
--- NOTE | 2024-11-10 06:13 | NUR ---
TRIAGE LICENSED PRACTICAL NURSE PRESENT AT BEDSIDE, PATIENT LAYING IN BED REQUESTING SNACKS. ABD ASSESSMENT DONE AND DOCUMENTED. PATIENT SALINE LOCKED WITH 10ML SALINE SYRINGE. PATIENT GIVEN SNACKS PROVIDED FROM TRIAGE LICENSED PRACTICAL NURSE. NO OTHER NEEDS IDENTIFIED BY PATIENT, CALL LIGHT IN REACH.
--- NOTE | 2024-11-10 07:14 | NUR ---
REPORT RECIEVED FROM JEANNINE DEWITT AND KT RN. PATIENT RESTING IN BED AND DENIES ANY PAIN OR NAUSEA. PATIENT WITHOUT ANY NEEDS AT THIS TIME. PATIENT AGREES TO GET UP TO CHAIR FOR BREAKFAST, BUT "CAN I STAY HERE IN BED FOR A LITTLE BIT LONGER." PATIENT WITHOUT ANY NEEDS AT THIS TIME. CALL LIGHT AND PERSONAL BELONGINGS ARE WITHIN REACH.
[2024-11-10] MEDS ORDERED: IBLOOD GLUCOSE TEST STRIP 1 EA TEST VI SCH (08:00)
[2024-11-10] MEDS ORDERED: INSULIN LISPRO 100 UNIT/ML ML SUB-Q SCH (08:00)
--- NOTE | 2024-11-10 08:25 | NUR ---
PATIENT UP TO CHAIR VIA 1PERSON ASSIST WITH HER 4WHEEL WALKER. PATIENT DENIES ANY PAIN, NAUSEA, OR DIZZINESS WITH AMBULATION. CBG CHECKED AND WAS 222. PATIENT MEDICATED PER EMAR. FRESH ICE WATER PROVIDED. PATIENT WITHOUT FURTHER NEEDS AT THIS TIME. CALL LIGHT AND PERSONAL BELONGINGS ARE WITHIN REACH. BREAKFAST TRAY SET UP IN FRONT OF PATIENT.
--- NOTE | 2024-11-10 09:00 | NUR ---
Pt was discussed in report with Dr. Dave. I was notified by my coworker, Lola, last night pt refused to sign the IM letter and voiced she was not leaving until Wednesday. I went and spoke with Catherine and she again declines DC as she does not feel she is ready to dc to a SNF. I discussed with her the hospital is a critical access hospital. The feels she is ready for a dc and arrangements were made for her to go to [facility]. She and family were in agreement. She feels she not ready as she has not had a BM today, she requires assistance to get out of bed, and she was not hungry this am. I let her know it is her right to appeal her dc. I can assist her to do so. I will call Simon and start the appeal process for her. She then state she would like to speak with Dr. Dave.
--- NOTE | 2024-11-10 09:45 | NUR ---
Dr. Dave spoke with pt and I spoke with Dr. Sebastian. Both agree pt is ready for dc and Dr. Sebastian feels pt will not have a bm for at least 2 days as she had a C-scope yesterday. After discussion pt now feels she will be ready to dc today as scheduled.
--- NOTE | 2024-11-10 10:04 | NUR ---
PATIENT IV REMOVED. CATH TIP INTACT. PRESSURE DRESSING OF GAUZE AND COBAN APPLIED. PATIENT SITTING UP IN HER CHAIR AND IS WITHOUT FURTHER NEEDS AT THIS TIME. CALL LIGHT AND PERSONAL BELONGINGS ARE WITHIN REACH.
--- NOTE | 2024-11-10 10:15 | NUR ---
PATIENT IN CHAIR AT THIS TIME. CRYPTOLOGIST ASSISTED PATIENT TO BATHROOM AND THEN BACK TO CHAIR. CRYPTOLOGIST GOT PATIENT DRESSED. CALL LIGHT WITHIN REACH, NO FURTHER NEEDS AT THIS TIME.
[2024-11-10] MEDS ORDERED: METAMUCIL PACK3.4 GM PO (10:24)
[2024-11-10] MEDS ORDERED: HEALTHYLAX17 GM PO (10:25)
[2024-11-10 11:26] VITALS: BP 155/104
--- NOTE | 2024-11-10 12:20 | NUR ---
PATIENT MEDICATED PER EMAR. PATIENT SITTING UP IN HER CHAIR READY TO GO AND IS EATING LUNCH WHILE WAITING. PATIENT WITHOUT FURTHER NEEDS FROM THIS RN AT THIS TIME. CALL LIGHT AND PERSONAL BELONGINGS ARE WITHIN REACH.
--- NOTE | 2024-11-10 12:50 | NUR ---
RE[facility]
--- NOTE | 2024-11-12 13:51 | OR ---
[facility] [address], [place] [address] Signed DATE OF OPERATION: 11/09/2024 SURGEON: Zhou Del Real MD PREOPERATIVE DIAGNOSIS: Recent probable stercoral colitis with profound constipation and known diverticulosis. POSTOPERATIVE DIAGNOSES: 1. Probable stercoral ulceration at 15 to 20 cm, less likely neoplasm. 2. Extensive diverticulosis. PROCEDURE: Total colonoscopy to cecum with biopsy of lesion at 15 cm. ANESTHESIA: Intravenous sedation, propofol, Solitario Hernandez CRNA. INDICATION: This 79-year-old white woman was admitted by Dr. Browne to the medical service with considerable constipation and elevated white count, left-sided abdominal tenderness and a CT scan finding with some colonic inflammation suggestive of stercoral colitis. Great efforts were made "from below" to free up the colon and IV antibiotics were administered, which allow for diminishment of her white count. When subtle measures from above including mineral oil and Senokot combined with overt measures from below (digital disimpaction, but no stool in the rectum) and number of enemas were unsuccessful she underwent colonoscopy by me yesterday. The scope was unable to pass much beyond the sigmoid colon from firm stool impaction. On that basis, a nasogastric tube was placed while she was sedated and she underwent a controlled aliquots administration of MiraLAX (she would never be compliant to do this on her own), which allowed for freeing of the bowel contents and resolution of the problem. This was performed yesterday. Since she has been noted to have a diminishing hematocrit now at 28, concern is maintained for possible neoplasm accounting for the obstructive process and I have recommended colonoscopy. She underwent a minimal additional prep with a small bottle of magnesium citrated as well as clear liquids yesterday, now is to undergo colonoscopy more formally. The risk of bleeding, infection, and perforation were reviewed with her. She understands and wished to proceed. FINDINGS: The prep was quite good overall. Complete colonoscopy was undertaken of cecum with full intubation of the cecum. She had numerous diverticula throughout the colon, but most Electronically Signed By: ZHOU DEL REAL MD 11/12/24 1351 PATIENT NAME: SEN SANCHEZ OPERATIVE REPORT DATE OF : 41 REPORT #: [id number] PHYSICIAN: ZHOU DEL REAL MD PCP: BELLE TOLEDO ANP REPORT IS CONFIDENTIAL AND NOT TO BE RELEASED WITHOUT AUTHORIZATION [facility] [address], [place] [address] Signed dominantly in the sigmoid and left colon. There was an area about 15 to 20 cm, which appeared to be either a stercoral ulceration or neoplasm, more likely the former. There is no overt sign of luminal cancer that I could tell. PROCEDURE IN DETAIL: The patient was brought to the endoscopy suite and placed in lateral decubitus position. Given intravenous sedation with propofol infusional technique. Digital rectal examination was normal. An Olympus video colonoscope was passed in the rectum and manipulated in the sigmoid where numerous diverticula were seen. Various careful maneuvers were made to pass more cephalad, but found was an area of ulceration which initially was thought possibly to be neoplastic. Various manipulations, the scope could be moved beyond this into the normal-appearing descending colon which had numerous diverticula. Scope was ultimately advanced to the cecum. The ileocecal valve and appendiceal orifice were normal. Scope was then withdrawn. Examination showed only diverticula scattered throughout the colon most dominantly in the left colon. The scope was withdrawn to approximately 20 cm from the anal verge. The ulcerated lesion could be seen once again. Though initially thought to be possibly neoplastic upon reflection and review and with cleansing of the area, I think this likely represented a true stercoral ulceration. Multiple biopsies were taken in the base of this lesion. Scope was then withdrawn and remaining colon appeared normal as did the rectum. Scope was removed. The patient taken to the recovery room in good condition. CONCLUDING DIAGNOSES: 1. Most likely stercoral ulceration seen less likely neoplastic change. 2. Diverticulosis. PLAN: She needs a bowel prep. Bowel regimen going forward given her multiple factors tending toward constipation. We will assist an outline for that. MD QING Connolly/EDINL /[id number] Electronically Signed By: ZHOU DEL REAL MD 11/12/24 1351 PATIENT NAME: SEN SANCHEZ OPERATIVE REPORT DATE OF : 41 REPORT #: [id number] PHYSICIAN: ZHOU DEL REAL MD PCP: BELLE TOLEDO [facility] REPORT IS CONFIDENTIAL AND NOT TO BE RELEASED WITHOUT AUTHORIZATION [facility] [address] [place] [id number] Signed cc: HUSSEIN Alcaraz Dr. Copies: ~ Electronically Signed By: ZHOU DEL REAL MD 11/12/24 1351 PATIENT NAME: SEN SANCHEZ OPERATIVE REPORT DATE OF : 41 REPORT #: [id number] PHYSICIAN: ZHOU DEL REAL MD PCP: BELLE TOLEDO REPORT IS CONFIDENTIAL AND NOT TO BE RELEASED WITHOUT AUTHORIZATION
--- NOTE | 2024-11-14 10:22 | PATH ---
[facility] [address] [place] [place], [place] [address] Signed SPECIMEN(S): A COLON POLYP AT 15 CM SPECIMEN SOURCE: A. COLON POLYP AT 15 CM CLINICAL HISTORY: Possible stercoral ulcer, neoplasm versus stercoral ulcer FINAL PATHOLOGIC DIAGNOSIS: Colon polyp at 15 cm: - Fragments of inflamed ulcer base and necrotic tissue. - Negative for evidence of malignancy. JVR:clv MICROSCOPIC EXAMINATION: Histologic sections of all submitted blocks are examined by light microscopy. These findings, together with the gross examination, support the pathologic diagnosis. A cytokeratin AE1/AE3 immunostain was performed with appropriate controls on block A1 and is negative for occult carcinoma. JVR:clv GROSS DESCRIPTION: The specimen, labeled and designated "Tran, colon polyp at 15 cm," is received in formalin and consists of seven ojeda soft tissue fragments, ranging from 0.2-0.8 cm. Entirely submitted in (A1). VB (under the direct supervision of a pathologist) The Gross Description was prepared using a voice recognition system. The report was reviewed for accuracy; however, sound-alike word errors, addition and/or deletions may occur. If there is any question about this report, please contact Client Services. ADDITIONAL NOTES: Immunohistochemical and/or in situ hybridization studies were performed on this case with the appropriate positive controls that react as expected. This test was developed and its performance characteristics determined by [facility]. It has not been cleared or approved by the U.S. Food and Drug Administration. The FDA has determined that such clearance or approval is not necessary. This test is used for clinical purposes. It should not be regarded as investigational or for research. [facility] is certified under the PATIENT NAME: SEN SANCHEZ PATHOLOGY DATE OF : 41 REPORT #: [id number] PHYSICIAN: AMANDA PATHOLOGY PCP: BELLE TOLEDO ANP REPORT IS CONFIDENTIAL AND NOT TO BE RELEASED WITHOUT AUTHORIZATION [facility] [address] [place], [place] [address] Signed Clinical Laboratory Improvement Amendments of 1988 (CLIA) as qualified to perform high complexity clinical laboratory testing. This assay has not been validated for specimens that have been decalcified PERFORMING LABORATORY: Technical component was performed by [facility], [address] [place] [address] (CLIA# [id number]). Professional interpretation was performed by [facility], [address] [place] [id number] (CLIA#: [id number]). Diagnostician: Alfonzo Davis MD Pathologist Electronically Signed 11/14/2024 Copies: ~ PATIENT NAME: SEN SANCHEZ PATHOLOGY DATE OF : 41 REPORT #: [id number] PHYSICIAN: [facility] PCP: BELLE TOLEDO ANP REPORT IS CONFIDENTIAL AND NOT TO BE RELEASED WITHOUT AUTHORIZATION
== END 2024-11-10 13:06 | DRG 392 ==
LOC: ED 11:17 → MS 18:18
PROVIDERS: Emergency Medicine; Surgery; ADMIT Family Medicine; ATTEND Student in an Organized Health Care Education/Training Program
PROC: 3E03329 Introduction of Other Anti-infective into Peripheral Vein, Percutaneous Approach (ICD-10-PCS; 2024-11-04)
PROC: 0DJ08ZZ Inspection of Upper Intestinal Tract, Via Natural or Artificial Opening Endoscopic (ICD-10-PCS; 2024-11-07)
PROC: 0DJD8ZZ Inspection of Lower Intestinal Tract, Via Natural or Artificial Opening Endoscopic (ICD-10-PCS; principal; 2024-11-07 14:30)
PROC: 0DH673Z Insertion of Infusion Device into Stomach, Via Natural or Artificial Opening (ICD-10-PCS; 2024-11-07 14:30)
PROC: 0DBE8ZX Excision of Large Intestine, Via Natural or Artificial Opening Endoscopic, Diagnostic (ICD-10-PCS; 2024-11-09)
DX: K52.89 Other specified noninfective gastroenteritis and colitis (principal); K63.3 Ulcer of intestine; N17.9 Acute kidney failure, unspecified; I13.0 Hypertensive heart and chronic kidney disease with heart failure and stage 1 through stage 4 chronic kidney disease, or unspecified chronic kidney disease; N18.4 Chronic kidney disease, stage 4 (severe); K56.41 Fecal impaction; K57.30 Diverticulosis of large intestine without perforation or abscess without bleeding; Z66 Do not resuscitate; E10.22 Type 1 diabetes mellitus with diabetic chronic kidney disease; D63.1 Anemia in chronic kidney disease; G20.A1 Parkinson's disease without dyskinesia, without mention of fluctuations; I50.9 Heart failure, unspecified; I48.91 Unspecified atrial fibrillation; E03.9 Hypothyroidism, unspecified; E83.42 Hypomagnesemia; E87.6 Hypokalemia; Z88.2 Allergy status to sulfonamides; Z88.8 Allergy status to other drugs, medicaments and biological substances; Z88.5 Allergy status to narcotic agent; Z88.6 Allergy status to analgesic agent; Z79.01 Long term (current) use of anticoagulants; Z79.82 Long term (current) use of aspirin; Z79.890 Hormone replacement therapy; Z79.4 Long term (current) use of insulin; Z95.1 Presence of aortocoronary bypass graft; Z95.2 Presence of prosthetic heart valve; I25.2 Old myocardial infarction
CPT/HCPCS: 00811; 36415; 51798; 74019; 74176; 80053; 81001; 83605; 83690; 83735; 84100; 85025; 87040; 88305; 88342; 93005; 93010; 94762; 96361; 96365; 96375; 96376; 97161; 97166; 97530; 97535; 99285-25; J0360; J0780; J1171; J1815; J2003; J2405; J2543; J2704; J3475; J3480; J3490; J7030; J7060; J7121